=== PATIENT | male | born 1950 | race Caucasian/White ===

== ENCOUNTER 2021-01-29 05:45 | Day surgery (SDC) | payer MEDICARE, OTHER ==
[~2021-01-29 05:45] MED LIST: Sodium Chloride 0.9% 10 ML Syringe FLUSH PRN
[2021-01-29] MEDS ORDERED: Midazolam 1 MG/ML 2 ML SDV IV ONE ×3 (05:46→06:36)
[2021-01-29] MEDS ORDERED: fentaNYL 100 MCG/2 ML SDV IV ONE ×3 (05:46→06:35)
[2021-01-29] MEDS ORDERED: Dextrose 5%-0.45% NaCl 1,000 ML IV SCH (06:00)
[2021-01-29] MEDS ORDERED: fentaNYL 100 MCG/2 ML SDV ONE (06:22)
[2021-01-29] MEDS ORDERED: Midazolam 1 MG/ML 2 ML SDV ONE (06:22)
--- NOTE | 2021-01-29 07:37 | OR ---
DATE: 01/29/2021 PROCEDURES: Esophagogastroduodenoscopy, NBI, and multiple pinch biopsies. INSTRUMENT USED: GIF-HQ190 Olympus video panendoscope. PREMEDICATIONS: No oral or topical anesthesia used. Fentanyl 100 mcg intravenous, Versed 2 mg intravenous. The procedure was done under pulse oximetry, BP recording, and teletypesetter monitor. INDICATION: The patient with persistent multiple abdominal symptoms, and found to be thrombocytopenic and iron-deficient. Had gastric bypass surgery done before. He is on long-term aspirin and also on famotidine. Esophagogastroduodenoscopy is performed for detection of any active erosive lesions, Gomez esophagus, and/or malignancy also under consideration, H pylori status to be determined, small bowel biopsies to be taken for celiac disease if indicated, endoscopic hemostasis therapy if needed. PROCEDURE IN DETAIL: The scope was passed with ease. Adequate visualization of the esophagus was made from proximal to distal areas. No upper esophageal lesions identified. No distal esophageal stricture. No uphill or downhill esophageal varices. No Kiara-Solis tear. No evidence of erosive esophagitis by Reading criteria. No esophageal polyp or tumor mass identified. Z-line was seen at around 39 cm distal to the oral verge, non-constricting Schatzki's ring was noted. Small sliding hiatal hernia was present. No esophageal polyp or tumor mass identified. Gastric fundus examination by retroflexion showed no polypoid lesions. No gastric ulcer, malignant mass, or vascular ectasia identified. Loops of the small bowel visualized were unremarkable. At the surgical site, scattered gastric erosions were noted without bleeding from them, NBI views were obtained, photographs were taken. Multiple pinch biopsies were taken from the distal and proximal gastric mucosa and sent for PyloriTek test for H pylori, and if negative in an hour, the tissue is to be sent for histopathology. Photographs were taken of the gastric fundus and distal esophagus. No bleeding was noted from any of the visualized areas at the completion of examination. IMPRESSION: 1. Non-constricting Schatzki's ring. 2. Small hiatal hernia. 3. Gastric erosions. The patient tolerated the procedure well. [facility] /[id number]
== END 2021-01-29 08:52 | disposition home or self-care (01) ==
LOC: DL.ENDO 05:45
PROVIDERS: ATTEND Internal Medicine Gastroenterology
DX: K25.9 Gastric ulcer, unspecified as acute or chronic, without hemorrhage or perforation (principal); K22.2 Esophageal obstruction; D69.6 Thrombocytopenia, unspecified; K44.9 Diaphragmatic hernia without obstruction or gangrene; E66.09 Other obesity due to excess calories; E11.9 Type 2 diabetes mellitus without complications; I10 Essential (primary) hypertension; N40.0 Benign prostatic hyperplasia without lower urinary tract symptoms; D50.9 Iron deficiency anemia, unspecified; Z98.84 Bariatric surgery status; Z98.890 Other specified postprocedural states; Z68.33 Body mass index [BMI] 33.0-33.9, adult
CPT/HCPCS: 43239; 87077; 88305; J2250; J3010; J7042

== ENCOUNTER 2021-01-30 07:45 | Day surgery (SDC) | payer MEDICARE, OTHER ==
[~2021-01-30 07:45] MED LIST changes: +Dextrose 5%-0.45% NaCl 1,000 ML IV SCH; +Midazolam 1 MG/ML 2 ML SDV IV ONE; +Midazolam 1 MG/ML 2 ML SDV ONE; -Sodium Chloride 0.9% 10 ML Syringe FLUSH PRN; +fentaNYL 100 MCG/2 ML SDV IV ONE; +fentaNYL 100 MCG/2 ML SDV ONE
[2021-01-30] MEDS ORDERED: fentaNYL 100 MCG/2 ML SDV IV ONE (07:46)
[2021-01-30] MEDS ORDERED: Midazolam 1 MG/ML 2 ML SDV IV ONE (07:46)
--- NOTE | 2021-01-30 09:45 | OR ---
DATE: 01/30/2021 PROCEDURES: Total colonoscopy and multiple cold snare polypectomies. INSTRUMENT USED: PCF-H190DL Olympus video colonoscope. PREMEDICATIONS: Fentanyl 150 mcg intravenous, Versed 4 mg intravenous. Nasal O2 cannula. The procedure was done under pulse oximetry, BP recording, and environmental monitoring specialist. INDICATIONS: The patient with rectal bleeding and iron deficiency. Colonoscopic examination is done for detection of any polypoid lesions and removal, endoscopic hemostasis therapy if needed. DESCRIPTION OF PROCEDURE: Initial rectal exam was unremarkable. Rigid anoscopy showed small internal hemorrhoids without bleeding from them. The colonoscope was passed with ease. In the distal rectum, diminutive benign-appearing polyp was noted, photograph was taken, cold snare polypectomy was done. The tissue was retrieved and sent for histopathology. The colonoscope was passed with ease up to the ileocecal area. Numerous scattered diverticula were noted, more so in the distal left colon along with deformity. No bleeding was noted from any of the visualized areas at the commencement of the examination. The bowel preparation was found to be adequate, Sealevel scale 2 in all the regions, total score 6. No stricture. No vascular ectasia. No large isolated ulcerations seen. No evidence of diffuse inflammatory bowel disease in the form of friability, contact bleeding, or ulcerations. Probing the proximal sides of folds and flexures using adequate distention and clearing up the stool material, withdrawal of the scope was made. In the mid transverse colon area, superficial around 1 cm size benign-appearing polyp was noted, photographs were taken, cold snare polypectomy was done, the tissues were retrieved and sent for histopathology. No bleeding was noted from any of the visualized areas at the completion of examination. IMPRESSION: 1. Internal hemorrhoids. 2. Diverticulosis. 3. Rectal and colonic polyps. The patient tolerated the procedure well. [facility] /[id number]
== END 2021-01-30 09:15 | disposition home or self-care (01) ==
LOC: DL.ENDO 07:45
PROVIDERS: ATTEND Internal Medicine Gastroenterology
DX: D12.8 Benign neoplasm of rectum (principal); D12.3 Benign neoplasm of transverse colon; D50.9 Iron deficiency anemia, unspecified; K57.31 Diverticulosis of large intestine without perforation or abscess with bleeding; K64.8 Other hemorrhoids; E66.09 Other obesity due to excess calories; E11.9 Type 2 diabetes mellitus without complications; I10 Essential (primary) hypertension; N40.0 Benign prostatic hyperplasia without lower urinary tract symptoms; D69.6 Thrombocytopenia, unspecified; Z98.84 Bariatric surgery status; Z98.890 Other specified postprocedural states; Z68.33 Body mass index [BMI] 33.0-33.9, adult
CPT/HCPCS: J2250; J3010; J7042

== ENCOUNTER 2021-06-15 18:42 | Emergency (ER) | payer MEDICARE, OTHER ==
[2021-06-15 19:45] LABS: CORONAVIRUS COVID-19 NAA NEGATIVE (NEGATIVE)
[2021-06-15] MEDS ORDERED: Acetaminophen 325 MG Tab PO ONE (19:50)
[2021-06-15 20:34] LABS: ANION GAP 16.1 mEq/L (7-13); CHLORIDE,CL 100 mmol/L (98-107); SODIUM,NA 138 mmol/L (136-145)
[2021-06-15] MEDS ORDERED: Iopamidol 612 MG/ML 100 ML Bottle IVPUSH ONE (20:53)
--- NOTE | 2021-06-15 22:55 | CT ---
PROCEDURE INFORMATION: Exam: CT Abdomen And Pelvis With Contrast Exam date and time: 06/15/2021 10:23 PM Age: 71 years old Clinical indication: Other: Wbc 9--hx diverticulosis; Additional info: Llq pain x 7 days fever 102.8 TECHNIQUE: Imaging protocol: Computed tomography of the abdomen and pelvis with contrast. Radiation optimization: All CT scans at this facility use at least one of these dose optimization techniques: automated exposure control; mA and/or kV adjustment per patient size (includes targeted exams where dose is matched to clinical indication); or iterative reconstruction. Contrast material: [id number]; Contrast volume: 100 ml; Contrast route: INTRAVENOUS (IV); COMPARISON: No relevant prior studies available. FINDINGS: Lungs: Lung bases are clear. Mediastinal space: Small hiatal hernia. Liver: There is fatty infiltration of the liver. Gallbladder and bile ducts: There is cholelithiasis without wall thickening or pericholecystic fluid. Pancreas: Click pancreas Spleen: Spleen is normal. Adrenal glands: Adrenals are normal. Kidneys and ureters: Kidneys are normal. Stomach and bowel: There are changes of prior gastric bypass. There are multiple sigmoid diverticuli with perisigmoid fat stranding. No fluid collection or perforation. There are multiple loops of small bowel which are interposed between the left abdominal wall and the transverse colon. Appendix: No evidence of appendicitis. Intraperitoneal space: See "Stomach and bowel" finding. Vasculature: Unremarkable. No abdominal aortic aneurysm. Lymph nodes: Unremarkable. No enlarged lymph nodes. Urinary bladder: Unremarkable as visualized. Reproductive: Unremarkable as visualized. Bones/joints: There has been a median sternotomy. Severe disc space narrowing at L4-L5. Soft tissues: Unremarkable. IMPRESSION: 1. Acute, uncomplicated sigmoid diverticulitis. 2. Cholelithiasis without cholecystitis. 3. Fatty infiltration of the liver. 4. Small hiatal hernia. 5. Internal hernia.
[2021-06-15] MEDS ORDERED: Amoxicillin/Clavulanate K 875-125 MG Tab PO ONE (23:41)
--- NOTE | 2021-06-15 23:41 | EDM.PDOC ---
ED HPI GENERAL MEDICAL PROBLEM - General Chief Complaint: Fever Stated Complaint: TEMP 102.2, SHAKES, STOMACH ACHES. Time Seen by Provider: 06/15/21 20:00 Source of Information: Reports: Patient History Limitations: Reports: No Limitations - History of Present Illness INITIAL COMMENTS - FREE TEXT/NARRATIVE: ED with c/o fever at home this evening. Has had c/o mild lower abdominal discomfort past 2-3 gonzales. Denied nausea vomiting or diarrhea. no prior episodes. No chest pain or cough. Denied urinary symptoms. Pain greater LLQ. Left Lower Abdomen Pain Score (Numeric/FACES): 8 - Related Data Allergies Allergy/AdvReac Type Severity Reaction Status Date / Time No Known Allergies Allergy Verified 01/30/21 07:48 Home Meds: Home Meds Aspirin 81 mg PO DAILY 07/11/17 [History] Famotidine 20 mg PO BID 07/11/17 [History] Finasteride 5 mg PO DAILY 07/11/17 [History] Gabapentin [Neurontin] 900 mg PO TID 07/11/17 [History] Metoprolol Succinate/HCTZ [Metoprolol ER-Hctz 25-12.5 mg] 25 mg PO DAILY 07/11/17 [History] Quinapril [Accupril] 20 mg PO DAILY 07/11/17 [History] Tamsulosin [Flomax] 0.4 mg PO BID 07/11/17 [History] allopurinoL [Zyloprim] 100 mg PO DAILY 07/11/17 [History] Simvastatin [Zocor] 10 mg PO BEDTIME 09/12/17 [History] Chlorthalidone 25 mg PO DAILY 01/26/21 [History] glipiZIDE [Glipizide ER] 5 mg PO DAILY 01/26/21 [History] metFORMIN [Glucophage] 1,000 mg PO BID 01/26/21 [History] Sildenafil [Revatio] 06/15/21 [History] Past Medical History HEENT History: Other HEENT History: READING GLASSES. TOP AND BOTTOM DENTURE PLATES Cardiovascular History: Reports: High Cholesterol, Hypertension, [place], Stents, Other (See Below) Other Cardiovascular History: Patient reports 3 MIs Respiratory History: Reports: COPD, Sleep Apnea Gastrointestinal History: Reports: Colon Polyp, Irritable Bowel Syndrome Genitourinary History: Reports: BPH Musculoskeletal History: Reports: Arthritis, Back Pain, Chronic, Gout, Osteoarthritis Neurological History: Reports: Neuropathy, Peripheral Psychiatric History: Reports: None Endocrine/Metabolic History: Reports: Diabetes, Type II, Obesity/BMI 30+ Other Endocrine/Metabolic History: Patient reports that he does not currently take anything for it. He no longer checks his blood sugars. He notes that prior to his gastric bypass he was taking 7 shots of insulin a day. Hematologic History: Reports: Anemia Immunologic History: Reports: None Oncologic (Cancer) History: Reports: None - Infectious Disease History Infectious Disease History: Reports: Chicken Pox, Measles, Mumps - Past Surgical History Head Surgeries/Procedures: Reports: None HEENT Surgical History: Reports: Cataract Surgery, Eye Surgery Cardiovascular Surgical History: Reports: Coronary Artery Bypass, Other (See Below) Other Cardiovascular Surgeries/Procedures: Triple bypass with 2 stents Respiratory Surgical History: Reports: None GI Surgical History: Reports: Bariatric Procedure, Colonoscopy, EGD, Hernia, Abdominal, Polypectomy, Other (See Below) Other GI Surgeries/Procedures: Gastric Bypass Male Surgical History: Reports: Prostate Biopsy, Other (See Below) Other Male Surgeries/Procedures: Prostate surgery Endocrine Surgical History: Reports: None Neurological Surgical History: Reports: Laminectomy, Other (See Below) Other Neurological Surgeries/Procedures: Spinal surgery for pinched nerve Musculoskeletal Surgical History: Reports: None Oncologic Surgical History: Reports: None Social & Family History - Family History Family Medical History: No Pertinent Family History - Tobacco Use Tobacco Use Status *Q: Never Tobacco User Second Hand Smoke Exposure: No - Caffeine Use Caffeine Use: Reports: Coffee Other Caffeine Use: AVERAGE OF 1 CUP DAILY - Recreational Drug Use Recreational Drug Use: No ED ROS GENERAL - Review of Systems Review Of Systems: Comprehensive ROS is negative, except as noted in HPI. ED EXAM, GI/ABD - Physical Exam Exam: See Below Exam Limited By: No Limitations General Appearance: Alert, Mild Distress Eyes: Bilateral: EOMI Ears: Normal External Exam, Hearing Grossly Normal Nose: Normal Inspection Throat/Mouth: Normal Inspection Head: Atraumatic, Normocephalic Neck: Normal Inspection Respiratory/Chest: No Respiratory Distress, Lungs Clear, Normal Breath Sounds Cardiovascular: Normal Peripheral Pulses, Regular Rate, Rhythm, Tachycardia GI/Abdominal Exam: Normal Bowel Sounds, Soft, Tender. No: Distended, Guarding, Rigid, Rebound Back Exam: Normal Inspection, Full Range of Motion Extremities: Normal Inspection, Normal Range of Motion Neurological: Alert, Oriented, Normal Cognition Psychiatric: Normal Affect, Normal Mood Skin Exam: Warm, Dry, Intact. No: Normal Color (face flushed) Course - Vital Signs Last Recorded V/S: Last Vital Signs Temp 101 F H 06/15/21 22:04 Pulse 80 06/15/21 22:04 Resp 18 06/15/21 22:04 BP 130/65 06/15/21 22:04 Pulse Ox 95 06/15/21 22:04 - Orders/Labs/Meds Labs: Laboratory Tests 06/15/21 06/15/21 06/15/21 Range/Units 18:58 20:05 20:05 WBC 9.1 (5.0-10.0) 10^3/uL RBC 4.64 (4.6-6.2) 10^6/uL Hgb 13.6 L (14.0-18.0) g/dL Hct 40.9 (40.0-54.0) % MCV 88.1 (80-100) fL MCH 29.3 (27.0-34.0) pg MCHC 33.3 (33.0-35.0) g/dL Plt Count 71 L (150-450) 10^3/uL Sodium 138 (136-145) mmol/L Potassium 4.1 (3.5-5.1) mmol/L Chloride 100 (98-107) mmol/L Carbon Dioxide 26 (21-32) mmol/L Anion Gap 16.1 H (7-13) mEq/L BUN 14 (7-18) mg/dL Creatinine 1.06 (0.70-1.30) mg/dL Est Cr Clr Drug Dosing TNP Estimated GFR (MDRD) > 60 BUN/Creatinine Ratio 13.2 (No establ ref range) Glucose 227 H (70-99) mg/dL Lactic Acid (0.4-2.0) mmol/L Calcium 8.6 (8.5-10.1) mg/dL Total Bilirubin 0.8 (0.2-1.0) mg/dL AST 21 (15-37) U/L ALT 24 (16-63) U/L Alkaline Phosphatase 70 (46-116) U/L Total Protein 7.5 (6.4-8.2) g/dL Albumin 4.0 (3.4-5.0) g/dL Globulin 3.5 Albumin/Globulin Ratio 1.1 Amylase 57 (25-115) U/L Lipase 184 (73-393) U/L Urine Color (YELLOW) Urine Appearance (CLEAR) Urine pH (5.0-9.0) Ur Specific [place] (1.005-1.030) Urine Protein (NEGATIVE) Urine Glucose (UA) (NEGATIVE) Urine Ketones (NEGATIVE) Urine Occult Blood (NEGATIVE) Urine Nitrite (NEGATIVE) Urine Bilirubin (NEGATIVE) Urine Urobilinogen (0.2-1.0) mg/dL Ur Leukocyte Esterase (NEGATIVE) Urine RBC /HPF Urine WBC (0-5/HPF) /HPF Ur Epithelial Cells (NOT SEEN) /HPF Urine Bacteria (0-FEW/HPF) /HPF Urine Mucus (NOT SEEN) /LPF Influenza Type A RNA Negative (NEGATIVE) Influenza Type B RNA Negative (NEGATIVE) SARS-CoV-2 RNA (ANGEL) Negative (NEGATIVE) 06/15/21 06/15/21 Range/Units 20:05 22:13 WBC (5.0-10.0) 10^3/uL RBC (4.6-6.2) 10^6/uL Hgb (14.0-18.0) g/dL Hct (40.0-54.0) % MCV (80-100) fL MCH (27.0-34.0) pg MCHC (33.0-35.0) g/dL Plt Count (150-450) 10^3/uL Sodium (136-145) mmol/L Potassium (3.5-5.1) mmol/L Chloride (98-107) mmol/L Carbon Dioxide (21-32) mmol/L Anion Gap (7-13) mEq/L BUN (7-18) mg/dL Creatinine (0.70-1.30) mg/dL Est Cr Clr Drug Dosing Estimated GFR (MDRD) BUN/Creatinine Ratio (No establ ref range) Glucose (70-99) mg/dL Lactic Acid 1.7 (0.4-2.0) mmol/L Calcium (8.5-10.1) mg/dL Total Bilirubin (0.2-1.0) mg/dL AST (15-37) U/L ALT (16-63) U/L Alkaline Phosphatase (46-116) U/L Total Protein (6.4-8.2) g/dL Albumin (3.4-5.0) g/dL Globulin Albumin/Globulin Ratio Amylase (25-115) U/L Lipase (73-393) U/L Urine Color Yellow (YELLOW) Urine Appearance Slightly cloudy (CLEAR) Urine pH 8.5 (5.0-9.0) Ur Specific [place] 1.020 (1.005-1.030) Urine Protein 30 H (NEGATIVE) Urine Glucose (UA) Negative (NEGATIVE) Urine Ketones 80 H (NEGATIVE) Urine Occult Blood Trace-intact H (NEGATIVE) Urine Nitrite Negative (NEGATIVE) Urine Bilirubin Negative (NEGATIVE) Urine Urobilinogen 2.0 H (0.2-1.0) mg/dL Ur Leukocyte Esterase Negative (NEGATIVE) Urine RBC 0-5 /HPF Urine WBC 0-5 (0-5/HPF) /HPF Ur Epithelial Cells Moderate H (NOT SEEN) /HPF Urine Bacteria Moderate H (0-FEW/HPF) /HPF Urine Mucus Moderate H (NOT SEEN) /LPF Influenza Type A RNA (NEGATIVE) Influenza Type B RNA (NEGATIVE) SARS-CoV-2 RNA (ANGEL) (NEGATIVE) Meds: Medications Discontinued Medications Generic Name Dose Route Start Last Admin Trade Name Tomq PRN Reason Stop Dose Admin Acetaminophen 650 mg 06/15/21 19:50 06/15/21 20:11 Acetaminophen 325 Mg Tab PO 06/15/21 19:51 650 mg NOW ONE Administration Amoxicillin/Clavulanate Potassium 1 tab 06/15/21 23:41 06/15/21 23:47 Amoxicillin/Clavulanate K 875-125 Mg Tab PO 06/15/21 23:42 1 tab ONETIME ONE Administration Iopamidol 100 ml 06/15/21 20:53 06/15/21 21:43 Iopamidol 612 Mg/Ml 100 Ml Bottle IVPUSH 06/15/21 20:54 100 ml ONETIME ONE Administration Departure - Departure Time of Disposition: 23:38 Disposition: Home, Self-Care 01 Condition: Good Clinical Impression: Diverticulitis - Discharge Information *PRESCRIPTION DRUG MONITORING PROGRAM REVIEWED*: No *COPY OF PRESCRIPTION DRUG MONITORING REPORT IN PATIENT MICHAELA: No Instructions: Diverticulitis Forms: ED Department Discharge Additional Instructions: tylenol 500mg every 4 hours as needed for discomfort augmentin 875mg twice daily bland diet avoid foods with seeds and nuts urgent follow up worseing fever, increased pain blood in stool clinic recheck next week Sepsis Event Note (ED) - Evaluation Sepsis Screening Result: No Definite Risk
== END 2021-06-15 23:50 | disposition home or self-care (01) ==
LOC: DL.ED 18:42
DX: K57.32 Diverticulitis of large intestine without perforation or abscess without bleeding (principal); E78.00 Pure hypercholesterolemia, unspecified; I10 Essential (primary) hypertension; I25.2 Old myocardial infarction; J44.9 Chronic obstructive pulmonary disease, unspecified; E66.9 Obesity, unspecified; Z68.30 Body mass index [BMI] 30.0-30.9, adult; Z79.84 Long term (current) use of oral hypoglycemic drugs; Z79.82 Long term (current) use of aspirin; Z79.899 Other long term (current) drug therapy; Z20.822 Contact with and (suspected) exposure to COVID-19
CPT/HCPCS: 0240U; 36415; 74177; 80053; 81001; 82150; 83605; 83690; 85027; 87040; 99284; A9270; Q9967

== ENCOUNTER 2022-02-26 05:11 | Day surgery (SDC) | payer MEDICARE, OTHER ==
[~2022-02-26 05:11] MED LIST changes: -Midazolam 1 MG/ML 2 ML SDV IV ONE; -Midazolam 1 MG/ML 2 ML SDV ONE; -fentaNYL 100 MCG/2 ML SDV IV ONE; -fentaNYL 100 MCG/2 ML SDV ONE
[2022-02-26] MEDS ORDERED: Midazolam 1 MG/ML 2 ML SDV IV ONE ×6 (05:12→07:56)
[2022-02-26] MEDS ORDERED: fentaNYL 100 MCG/2 ML SDV IV ONE ×3 (05:12→07:41)
[2022-02-26] MEDS ORDERED: Midazolam 1 MG/ML 2 ML SDV ONE (05:13)
[2022-02-26] MEDS ORDERED: fentaNYL 100 MCG/2 ML SDV ONE (05:13)
[2022-02-26] MEDS ORDERED: Sodium Chloride 0.9% 10 ML Syringe FLUSH PRN (07:29)
[2022-02-26] MEDS ORDERED: Dextrose 5%-0.45% NaCl 1,000 ML IV SCH (07:45)
[2022-02-26] MEDS ORDERED: Sodium Chloride 0.9% 10 ML Syringe FLUSH SCH (09:00)
== END 2022-02-26 10:00 | disposition home or self-care (01) ==
LOC: DL.ENDO 05:11
PROVIDERS: ATTEND Internal Medicine Gastroenterology
DX: K57.30 Diverticulosis of large intestine without perforation or abscess without bleeding (principal); K64.8 Other hemorrhoids; Z86.010 Personal history of colon polyps
CPT/HCPCS: 36415; 36430; 82565; 86900; 86901; J2250; J3010; J3490; J7042; P9034